=== PATIENT | female | born 1980 | race Two or more races ===

== ENCOUNTER 2024-10-09 23:06 | Emergency (ER) | payer MEDICAID, SELFPAY ==
[2024-10-09 23:07] VITALS: BMI 35.7
[2024-10-09 23:14] VITALS: BP 153/96; PULSE 83; RESP 24; TEMP 37; O2SAT 100
--- NOTE | 2024-10-09 23:19 | XR_ITS ---
Examination: PA lateral chest 2 views Technique: Upright PA lateral chest 2 views Exam date and time: October 09, 2024 11:38 PM Indications: Coughing today. Findings: Suspicious for early right perihilar pneumonia Normal heart size The osseous structures are demineralized Impression: Suspicious for early right perihilar pneumonia
--- NOTE | 2024-10-09 23:33 | EKG_ITS ---
[facility] Test Date: 2024-10-09 Pat Name: NAHID ESPOSITO Department: Room: - Gender: Female Dental Hygienist: : 1980 Requested By: Hossein Waters ([facility]) Order Number: [id number] Reading MD: Hossein Waters ([facility]) Measurements Intervals [place] Rate: 85 P: 11 AL: 124 QRS: 46 QRSD: 93 T: 16 QT: 332 QTc: 395 Interpretive Statements SINUS RHYTHM LOW QRS VOLTAGE IN PRECORDIAL LEADS [QRS DEFLECTION < 1.0 mV IN CHEST LEADS] POSSIBLE RIGHT VENTRICULAR CONDUCTION DELAY [RSR (QR) IN V1/V2] No previous ECG available for comparison /store/S0/[id number]/ecg/[id number].pdf
--- NOTE | 2024-10-09 23:33 | PD.EDRME ---
Rapid Medical Screening Exam RME Arrival date/time: 10/09/24 23:06 44-year-old obese female presents emergency department complaining of chest pain that radiates to left shoulder and sore throat has been ongoing for 3 days. Chief Complaint: Chest Pain Time Seen by Provider: 10/09/24 23:16 Vital signs: Vital Signs Temperature 98.6 F 10/09/24 23:14 Pulse Rate 83 10/09/24 23:14 Respiratory Rate 24 H 10/09/24 23:14 Blood Pressure 153/96 H 10/09/24 23:14 Pulse Oximetry (%) 100 10/09/24 23:14 Oxygen Delivery Method Room Air 10/09/24 23:14 Vital signs reviewed by provider: Yes
[2024-10-10 00:07] LABS: Basophils % (Auto) 0 % (0-2.5); Eosinophils # (Auto) 0.1 Thou/mm3 (0.0-0.5); Eosinophils % (Auto) 1 % (0-10); Hematocrit 40.9 % (36.0-46.0); Hemoglobin 13.9 g/dL (12.0-16.0); Immature Granulocytes % (Auto) 0 % (0-0); Immature Granulocytes Auto 0.01 Thou/mm3 (0.00-0.00); Lymphocytes # (Auto) 1.9 Thou/mm3 (1.0-4.8); Lymphocytes % (Auto) 33 % (10-50); Mean Corpuscular Hemoglobin 29.3 pg (25.0-35.0); Mean Corpuscular Volume 86 fL (80-100); Monocytes # (Auto) 0.5 Thou/mm3 (0.0-0.8); Monocytes % (Auto) 9 % (0-12); Neutrophils # (Auto) 3.2 Thou/mm3 (1.8-7.7); Neutrophils % (Auto) 56 % (37-80); Nucleated Red Blood Cell % 0 /100 WBC (0); Platelet Count 196 Thou/mm3 (140-440); RDW Standard Deviation 37.8 fL (36.4-46.3); Red Blood Count 4.74 Miln/mm3 (4.00-5.20); White Blood Count 5.7 Thou/mm3 (3.6-11.0)
[2024-10-10 00:16] LABS: B-Type Natriuretic Peptide < 20 pg/mL (0-100)
[2024-10-10 00:17] LABS: Alanine Aminotransferase 11 U/L (10-49); Albumin, Serum 4.3 gm/dL (3.5-5.0); Albumin/Globulin Ratio 1.4 (1.2-2.2); Alkaline Phosphatase 102 U/L (46-116); Anion Gap 5 (7-16); Aspartate Amino Transferase 17 U/L (0-34); BUN/Creatinine Ratio 25 Ratio (12-20); Bilirubin,Total 0.3 mg/dL (0.3-1.2); Blood Urea Nitrogen 15 mg/dL (9-23); Calcium 10.1 mg/dL (8.3-10.6); Calcium (Corrected) 10.1 mg/dL (8.5-10.1); Carbon Dioxide 26.2 mMol/L (20.0-31.0); Chloride 108 mMol/L (98-107); Creatinine (Component) 0.6 mg/dL (0.6-1.3); Estimated Creatinine Clearance 139.7 mL/min (>60); Glucose 108 mg/dL (74-106); Osmolality,Calculated 279 (275-295); Potassium 3.8 mMol/L (3.4-5.1); Sodium 139 mMol/L (136-145); Total Protein 7.3 gm/dL (5.7-8.2); Troponin I < 0.002 ng/mL (0.0-0.045); eGFR > 60 See Note
[2024-10-10 00:22] LABS: Strep A Rapid Negative (Negative)
[2024-10-10 00:31] LABS: Partial Thromboplastin Time 26.7 Seconds (22.0-36.0); Prothrombin Time 10.6 Seconds (9.0-12.2)
[2024-10-10 00:33] LABS: Collection Type, Urine Clean Catch; RBC,Urine 0 /hpf (0-3)
[2024-10-10 00:37] LABS: Bacteria,Urine Rare; Bilirubin,Urine Negative (Negative); Blood,Urine Negative (Negative); Clarity,Urine Clear (Clear/Hazy); Color,Urine Lt-Yellow (Lt Yel-Yel); Glucose, Urine Negative (Negative); Ketones,Urine Negative (Negative); Leukocyte Esterase,Urine Positive (Negative); Nitrite,Urine Negative (Negative); PH,Urine 6.5 (5.0-7.0); Protein,Urine Negative (Neg - Trace); Specific Gravity,Urine 1.017 (1.001-1.035); Squamous Epithelial Cell,Urine 3 /hpf (0-5); Urobilinogen,Urine Negative mg/dL (0.0-1.0); WBC,Urine 2 /hpf (0-5)
[2024-10-10 01:02] LABS: Amphetamine/Methamp Scrn,U Negative (Negative); Barbiturate Screen,Urine Negative (Negative); Benzodiazepines Screen,Urine Negative (Negative); Benzoylecgonine Screen, Ur Negative (Negative); Fentanyl Screen,Urine Negative (Negative); Opiate Screen,Urine Negative (Negative); THC Screen,Urine Negative (Negative)
[2024-10-10 01:18] VITALS: BP 135/84; PULSE 84; RESP 18; TEMP 37.2; O2SAT 100
[2024-10-10 01:26] LABS: HCG,Qualitative Serum Negative
--- NOTE | 2024-10-10 02:15 | PD.EDCHEST ---
ED Chest Pain RME/HPI General Chief Complaint: Chest Pain Stated Complaint: CHEST PAIN AND SOB Time Seen by Provider: 10/09/24 23:16 Arrival date/time: 10/09/24 23:06 Limitations: no limitations RME / HPI RME / HPI narrative: 10/09/24 23:06 44-year-old obese female presents emergency department complaining of chest pain that radiates to left shoulder and sore throat has been ongoing for 3 days. ----- Dr. Carrasco's Main ED Evaluation: 44yo female presents to the ED for complaints of mid chest pain and a productive cough x 2-3 days. Patient states her chest pain radiates to her left shoulder. She states she's had a productive cough and wasn't sure what to do with it , so she came in for evaluation. She endorses having a subjective fever, so she took Tylenol which helped. She denies any nausea, vomiting, diarrhea, shortness of breath, UTI symptoms, hemoptysis or any other associated symptoms. No known allergies. Related Data Previous Rx's ?Medication ?Instructions ?Recorded cyclobenzaprine 10 mg tablet 10 mg PO HS #14 tabs 06/30/22 Allergies Allergy/AdvReac Type Severity Reaction Status Date / Time No Known Allergies Allergy Verified 12/18/22 07:42 Review of Systems Review of Systems Systems Reviewed: All systems reviewed, normal except as documented Past Medical History Past Medical History NEUROLOGIC: Negative Neurological Disorders or Cerebrovascular Accident CARDIAC: Negative Myocardial Infarction, Angina or Congestive Heart Failure RESPIRATORY: Negative Chronic Obstructive Pulmonary Disease (COPD) or Emphysema GASTROINTESTINAL: Positive Pancreatitis and Gall Bladder Disease GENITOURINARY: Negative Renal Disease MUSCULOSKELETAL: Negative Musculoskeletal Disorders ENT: Negative Cataracts ENDOCRINE: Negative Diabetes Mellitus Type 1 or Diabetes Mellitus Type 2 HEMATOLOGIC: Negative Anemia OTHER HISTORY: Negative Down Syndrome or Developmental Delay Surgical History SURGICAL: Positive Abdominal Surgery Social History SMOKING STATUS: Never smoker ED Exam General Limitations: Present no limitations General appearance: Present alert and in no apparent distress Head Head exam: Present atraumatic Eye Eye exam: Present normal appearance, PERRL and EOMI ENT ENT exam: Present normal exam, mucous membranes moist and other (mild erythema to the back of the throat without exudates, uvula is midline) Neck Neck exam: Present normal inspection, full ROM and trachea midline Chest Chest inspection: Present normal inspection and symmetric chest wall rise Respiratory Respiratory exam: Present normal lung sounds bilaterally Cardiovascular Cardiovascular exam: Present regular rate, normal rhythm and normal heart sounds Abdominal Exam Abdominal exam: Present soft and normal bowel sounds; Absent distention or tenderness Extremities Exam Extremities exam: Present normal inspection and full ROM; Absent pedal edema Back Exam Back exam: Present normal inspection and full ROM Neurological Exam Neurological exam: Present alert, oriented X3 and CN II-XII intact Psychiatric Psychiatric exam: Present normal affect and normal mood Skin Skin exam: Present warm, dry, intact and normal color Course Course Course Narrative: CXR is ordered for determining the etiology of cough. Quality Measures none Orders Category Date Time Status Bedside COVID-19 Antigen Test NOW Care 10/09/24 23:19 Active Bedside Influenza A&B Antigen Test NOW Care 10/09/24 23:19 Completed EKG (ED ONLY) *Do not use* NOW Care 10/09/24 23:33 Completed EKG (ED Only) Stat Exams 10/09/24 23:33 Draft XR chest 2V Stat Exams 10/09/24 23:19 Completed B-Type Natriuretic Peptide Stat Lab 10/09/24 23:50 Completed CBC Stat Lab 10/09/24 23:50 Completed Comprehensive Metabolic Panel Stat Lab 10/09/24 23:50 Completed Drug Screen,Urine Stat Lab 10/10/24 00:20 Completed HCG,Qualitative Serum Stat Lab 10/09/24 23:50 Completed Magnesium Stat Lab 10/09/24 23:50 Completed Partial Thromboplastin Time Stat Lab 10/09/24 23:50 Completed Prothrombin Time with INR Stat Lab 10/09/24 23:50 Completed Strep A Rapid Stat Lab 10/09/24 23:29 Completed Troponin I Stat Lab 10/09/24 23:50 Completed Urinalysis Stat Lab 10/10/24 00:20 Completed Vital Signs Vital signs: Vital Signs Temperature 98.6 F 10/09/24 23:14 Pulse Rate 83 10/09/24 23:14 Respiratory Rate 24 H 10/09/24 23:14 Blood Pressure 153/96 H 10/09/24 23:14 Pulse Oximetry (%) 100 10/09/24 23:14 Oxygen Delivery Method Room Air 10/09/24 23:14 Pulse ox is 100% on room air, which is normal according to my interpretation. Chest Pain Patient data External records reviewed:: [facility] previous records (Per chart review, patient has no relevant previous ED visits or admissions.) Clinical information provided by:: patient Social determinants that could affect healthcare access:: none Patient has the following chronic illnesses:: none How is presenting disease/condition affected by chronic disease/condition?: no chronic disease Evaluation data The following diagnostics were reviewed and interpreted by me:: lab results, radiology exam(s) and EKG tracing(s) Lab and/or radiology exams considered but not ordered:: none Interpretation Summary: Bedside COVID and Influenza are negative, CBC is normal, CMP is normal, Troponin is negative, HCG is negative, UA is unremarkable, UDS is negative, according to my interpretation. EKG done at 2335, NSR, rate of 85, low voltage, no ST elevations or depressions, QTc is normal, no STEMI, no previous EKG available for comparison, according to my interpretation. ---- [facility] Report Signed Patient: NAHID ESPOSITO. Record#: [id number] Birthdate: 1980 Age/Sex: 44 / F Location: [facility] Attending Dr: Ordering Physician: Lynn MOBLEY)Hossein Date of Service: 10/09/24 Procedure(s): XR chest 2V Accession Number(s): [id number] cc: Naveen Ybarra MD; Lynn CONROYP)Hossein~ Examination: PA lateral chest 2 views Technique: Upright PA lateral chest 2 views Exam date and time: October 09, 2024 11:38 PM Indications: Coughing today. Findings: Suspicious for early right perihilar pneumonia Normal heart size The osseous structures are demineralized Impression: Suspicious for early right perihilar pneumonia Dictated By: Naveen Ybarra MD Signed By: <Electronically signed by Naveen Ybarra MD in OV> 10/10/24 0005 Medications / Prescriptions Medications or Prescriptions considered but not ordered:: none Medication administrations:: see above, if any Consultations Consultation(s) initiated? (list below): No Diagnosis Chest Pain Differential Diagnosis: other (viral syndrome, pneumonia, strep pharyngitis, other viral syndrome) Most likely diagnosis given after review of the tests above:: see below Admission Indicated Admission indicated?: not indicated Admission Request Was there a request for admission?: No Disposition Plan Disposition Plan: Discharge Discharge Attestation Discharge Attestation: The patient and all family members were given an opportunity to ask questions and understood the discharge instructions. Discharge instructions specifically effects, indications for sooner follow up or return to the emergency department, and the expected course of current diagnosis. Patient condition: Stable Discharge Plan Plan Patient Disposition: HOME (Self Care) Patient condition on transfer: Stable Prescriptions/Referrals Prescriptions/Med Rec: No Action cyclobenzaprine 10 mg tablet 10 mg PO HS Qty: 14 0RF Referrals: No Primary/Family,Physician [Primary Care Provider] - In 1 week Problem List Clinical Impression: Community acquired pneumonia Patient/Caregiver Discharge Instructions Education Materials: Treating Pneumonia Print Language: German Stand Alone Forms: Lilli Award Info., Patient Portal Info Letter
[2024-10-10] MEDS: AMOXICILLIN 250 MG CAPSULE 1000 MG PO (02:51)
[2024-10-10] MEDS: KETOROLAC INJ 60 MG/2 ML VIAL 30 MG IM (02:52)
[2024-10-10 02:58] VITALS: BP 128/66; PULSE 88; RESP 16; TEMP 37.1; O2SAT 100
== END 2024-10-10 02:59 | disposition home or self-care (01) ==
PROVIDERS: Emergency Provider Emergency Medicine
DX: J18.9 Pneumonia, unspecified organism (principal); R94.31 Abnormal electrocardiogram [ECG] [EKG]
CPT/HCPCS: 36415; 71046; 80053; 80307; 81001; 83735; 83880; 84484; 84703; 85025; 85610; 85730; 87400; 87651; 87811; 93005; 96372; 99283; J1885; A9270

== ENCOUNTER 2024-12-28 05:53 | Emergency (ER) | payer MEDICAID, SELFPAY ==
[2024-12-28 06:13] VITALS: BP 126/85; PULSE 93; RESP 19; TEMP 36.8; O2SAT 99; BMI 34.6
--- NOTE | 2024-12-28 06:20 | PD.EDRME ---
Rapid Medical Screening Exam RME Arrival date/time: 12/28/24 05:53 44-year-old female presents emergency department today complains of upper abdominal pain Chief Complaint: Abdominal Pain Vital signs: Vital Signs Temperature 98.3 F 12/28/24 06:13 Pulse Rate 93 12/28/24 06:13 Respiratory Rate 19 12/28/24 06:13 Blood Pressure 126/85 H 12/28/24 06:13 Pulse Oximetry (%) 99 12/28/24 06:13 Oxygen Delivery Method Room Air 12/28/24 06:13
[2024-12-28 07:10] LABS: Collection Type, Urine Clean Catch; RBC,Urine 0 /hpf (0-3)
[2024-12-28] MEDS: METOCLOPRAMIDE INJ 5 MG/ML VIAL 2 ML 10 MG IM (07:20)
[2024-12-28] MEDS: KETOROLAC INJ 30 MG/ML VIAL IM (07:20)
[2024-12-28 07:32] LABS: Basophils % (Auto) 0 % (0-2.5); Eosinophils # (Auto) 0.1 Thou/mm3 (0.0-0.5); Eosinophils % (Auto) 1 % (0-10); Hematocrit 42.4 % (36.0-46.0); Hemoglobin 14.3 g/dL (12.0-16.0); Immature Granulocytes % (Auto) 0 % (0-0); Immature Granulocytes Auto 0.01 Thou/mm3 (0.00-0.00); Lymphocytes % (Auto) 16 % (10-50); Mean Corpuscular HGB Conc 33.7 g/dl (31.0-37.0); Mean Corpuscular Hemoglobin 29.8 pg (25.0-35.0); Mean Corpuscular Volume 88 fL (80-100); Monocytes # (Auto) 0.5 Thou/mm3 (0.0-0.8); Monocytes % (Auto) 8 % (0-12); Neutrophils # (Auto) 4.3 Thou/mm3 (1.8-7.7); Neutrophils % (Auto) 74 % (37-80); Nucleated Red Blood Cell % 0 /100 WBC (0); Platelet Count 172 Thou/mm3 (140-440); RDW Standard Deviation 38.5 fL (36.4-46.3); White Blood Count 5.9 Thou/mm3 (3.6-11.0)
[2024-12-28 07:40] LABS: Bacteria,Urine Rare; Bilirubin,Urine Negative (Negative); Blood,Urine Negative (Negative); Clarity,Urine Turbid (Clear/Hazy); Color,Urine Lt-Yellow (Lt Yel-Yel); Culture Indicated,Urine Contaminated; Glucose, Urine Negative (Negative); Ketones,Urine Negative (Negative); Leukocyte Esterase,Urine Positive (Negative); Nitrite,Urine Negative (Negative); PH,Urine 6.5 (5.0-7.0); Protein,Urine Negative (Neg - Trace); Specific Gravity,Urine 1.008 (1.001-1.035); Squamous Epithelial Cell,Urine 21 /hpf (0-5); Urobilinogen,Urine Negative mg/dL (0.0-1.0); WBC,Urine 21 /hpf (0-5)
[2024-12-28 07:41] LABS: HCG Qualitative,Urine Negative
[2024-12-28 07:54] LABS: Alanine Aminotransferase 9 U/L (10-49); Albumin, Serum 4.3 gm/dL (3.5-5.0); Albumin/Globulin Ratio 1.6 (1.2-2.2); Anion Gap 6 (7-16); Aspartate Amino Transferase 15 U/L (0-34); BUN/Creatinine Ratio 17 Ratio (12-20); Bilirubin,Total 0.7 mg/dL (0.3-1.2); Blood Urea Nitrogen 10 mg/dL (9-23); Carbon Dioxide 25.2 mMol/L (20.0-31.0); Chloride 108 mMol/L (98-107); Creatinine (Component) 0.6 mg/dL (0.6-1.3); Estimated Creatinine Clearance 137.3 mL/min (>60); Globulin 2.7 gm/dL (2.3-3.5); Glucose 106 mg/dL (74-106); Lipase 30 U/L (12-53); Osmolality,Calculated 276 (275-295); Potassium 4.2 mMol/L (3.4-5.1); Sodium 139 mMol/L (136-145); Troponin I < 0.002 ng/mL (0.0-0.045); eGFR > 60 See Note
[2024-12-28 08:05] LABS: Alkaline Phosphatase 85 U/L (46-116)
[2024-12-28 08:41] VITALS: BP 139/73; PULSE 78; RESP 18; TEMP 36.9; O2SAT 99
--- NOTE | 2024-12-28 08:56 | EDNOTE_ITS ---
ED Abdominal Pain RME/HPI General Chief Complaint: Abdominal Pain Stated complaint: UPPER ABD PAIN, VOMITING Arrival date/time: 12/28/24 05:53 RME / HPI RME / HPI narrative: 12/28/24 05:53 44-year-old female presents emergency department today complains of upper abdominal pain DR. TESFAYE MAIN ED EVALUATION: 44 year old female with history pancreatitis 5 years ago presents to the ED for evaluation of epigastric abdominal pain beginning at 04:30 hours this morning. Described as aching in sensation and rating as moderate. Accompanied by nausea and vomiting 8x's since onset of pain. Patient mentioned she has experienced similar pain before and told it was due to a viral illness. Denies food being related to meals. Denies fevers, chills, sweats, chest pain, cough, shortness of breath, diarrhea, constipation, or urinary symptoms. Related Data Previous Rx's ?Medication ?Instructions ?Recorded cyclobenzaprine 10 mg tablet 10 mg PO HS #14 tabs 06/03 07/24 Allergies Allergy/AdvReac Type Severity Reaction Status Date / Time No Known Allergies Allergy Verified 12/18/22 07:42 Review of Systems Review of Systems Narrative Review of Systems: Constitutional: DENIES; Fevers Eyes: DENIES; Loss of vision Head/Ear/Nose: DENIES; Loss of hearing Throat: DENIES; Dysphagia Cardiovascular: DENIES; Chest pain, dyspnea or syncope Respiratory: DENIES; Shortness of breath Gastrointestinal: SEE HPI +nausea, vomiting, abdominal pain. DENIES; Rectal bleeding or melena. Genitourinary: DENIES; Dysuria (painful or difficult urination) Musculoskeletal: DENIES; Arthralgia (pain in a joint),; Skin: DENIES; Rash Neurological: DENIES; Loss of function or movement Psychiatric: DENIES; recent major life stressor, emotional problem, illicit drug use or abuse Endocrinology: DENIES; Weight change Hematologic/Lymphatic: DENIES; Abnormal bruising Allergic/Immunologic: DENIES; Urticaria (hives) Past Medical History Past Medical History NEUROLOGIC: Negative Neurological Disorders GASTROINTESTINAL: Positive Pancreatitis and Gall Bladder Disease MUSCULOSKELETAL: Negative Musculoskeletal Disorders Surgical History SURGICAL: Positive Abdominal Surgery Social History SMOKING STATUS: Never smoker ED Exam Narrative Physical exam: Physical Exam: General: The vital signs were reviewed. The patient is non-toxic, in no apparent distress and appears healthy with a patent airway, no respiratory distress and has no apparent circulatory problems. Head & Scalp: Normocephalic, atraumatic. Face: Appears normal and is without lesions, deformity. Ears: Left external pinna appears normal. Right external pinna appears normal. Eyes: The sclera is anicteric. No obvious photophobia. The Left and Right Orbit/Lid/Conjunctiva appears normal without swelling, discoloration or in jection. Nose: The nose is without deformity, discharge or tenderness; Throat: Appears normal. The mucous membranes are pink and moist without exudates, redness or mass seen. The tongue appears normal. Neck: The neck is supple and no apparent mass or adenopathy. Chest: The chest wall is normal in size and symmetry and has no chest wall tenderness or crepitus. The patient displays normal ventilator effort without retractions, accessory muscle use and has adequate air movement bilaterally with no wheezes and no rales. Cardiovascular: Regular rate and rhythm; No murmurs, rubs, or gallops; Gastrointestinal: The abdomen appears normal. No obvious hernias or mass. The abdomen is soft and benign, non-distended, with no pain, no guarding and no rebound tenderness. Bowel sounds are present and normal sounding. No CVA tenderness. Genitourinary: Back/Spine: Extremities/Musculoskeletal/lymphatic: The bilateral upper and lower extremities are warm. There is no evidence of arterial insufficiency. There is no evidence of venous insufficiency/edema. The patient spontaneously moves bilateral upper and lower extremities with no pain and no limitation of movement. There is no apparent, injury or trauma. Skin: The skin is warm, dry and intact. No rashes. No petechia. No purpura. No abnormal bruising. The color is appropriate with no cyanosis. Mental status/Psychiatric: Mental status is appropriate for age. The patient has no apparent delusions, visual hallucinations, no apparent audible hallucinations. The patient has no apparent suicidal thoughts/ideation and no apparent homicidal thoughts/ideation. Neurological: The patient is awake, alert, interactive, cordial, cooperative and is oriented to name and situation. The patient follows commands and answers historical question with no impairment. There is no visual disturbance apparent. The pupils are equal and reactive bilaterally with normal eye movements and no diplopia The bilateral upper and lower extremities have normal strength, normal range of motion and normal functioning. The gait, station and balance appear to be baseline with no acute change Course Quality Measures none Orders Category Date Time Status CBC Stat Lab 12/28/24 07:04 Completed Comprehensive Metabolic Panel Stat Lab 12/28/24 07:04 Completed HCG Qualitative,Urine Stat Lab 12/28/24 06:28 Completed Lipase Stat Lab 12/28/24 07:04 Completed Troponin I Stat Lab 12/28/24 07:04 Completed UA, C/S IF [Urinalysis, C/S if Indicated] Stat Lab 12/28/24 06:28 Completed Ketorolac Inj [Toradol Inj] Med 12/28/24 06:19 Discontinued 30 mg IM X1 ONE Metoclopramide Inj [Reglan Inj] Med 12/28/24 06:19 Discontinued 10 mg IM X1 ONE Vital Signs Vital signs: Vital Signs Temperature 98.3 F 12/28/24 06:13 Pulse Rate 93 12/28/24 06:13 Respiratory Rate 19 12/28/24 06:13 Blood Pressure 126/85 H 12/28/24 06:13 Pulse Oximetry (%) 99 12/28/24 06:13 Oxygen Delivery Method Room Air 12/28/24 06:13 Pulse ox is 99% on room air which is adequate. Abdominal Pain MDM MDM Narrative MDM Narrative:: IZohra, phil scribing for and in the presence of Dr. Tesfaye. Patient is a 41-year-old who comes in with abdominal pain that is resolved since she got some medications with nausea and vomiting which is resolved with Zofran has been no further vomiting. Her lab studies show her BUN/creatinine to be normal her electrolytes to be within normal limits. And a urine is a contaminated specimen but she is very dilute. CBC with white count 5.9 hemoglobin 14.3. Patient clinically does not appear to be very ill we will try some oral fluids and reevaluate. Reevaluation at>>>>>> patient's labs and admission were reassuring she drank fluids without any nausea or vomiting she ambulated without any difficulty she is smiling states she feels good and wants to go home. Her abdominal pain is totally resolved and she has no further nausea. Patient was advised return to getting worse in any way Patient data External records reviewed:: [facility] previous records (I reviewed ED visit on 10/10/2024) Clinical information provided by:: patient Social determinants that could affect healthcare access:: none Patient has the following chronic illnesses:: Pancreatitis 5 years ago How is presenting disease/condition affected by chronic disease/condition?: uneffected by Evaluation data The following diagnostics were reviewed and interpreted by me:: lab results Lab and/or radiology exams considered but not ordered:: None Interpretation Summary: as noted above Medications / Prescriptions Medications or Prescriptions considered but not ordered:: None Medication administrations:: Medication Administration History Discontinued Medications Ketorolac Tromethamine (Ketorolac Inj 30 Mg/Ml Vial) 30 mg IM X1 ONE Stop: 12/28/24 06:20 Last Admin: 12/28/24 07:20 Dose: 30 mg Documented By: ORIN Metoclopramide HCl (Metoclopramide Inj 5 Mg/Ml Vial 2 Ml) 10 mg IM X1 ONE; Protocol Stop: 12/28/24 06:20 Last Admin: 12/28/24 07:20 Dose: 10 mg Documented By: ORIN See above Consultations Consultation(s) initiated? (list below): No Diagnosis Differential diagnosis abdominal pain: abdominal pain, calculus of kidney, gastroenteritis, pancreatitis and other (gastritis ) Most likely diagnosis given after review of the tests above:: Abdominal pain, nausea and vomiting Admission Indicated Admission indicated?: not indicated Explain why admission is indicated or not indicated:: Pt reported improvement in symptoms. Admission not indicated. Admission Request Was there a request for admission?: No Disposition Plan Disposition Plan: Discharge Discharge Attestation Discharge Attestation: The patient and all family members were given an opportunity to ask questions and understood the discharge instructions. Discharge instructions specifically effects, indications for sooner follow up or return to the emergency department, and the expected course of current diagnosis. Patient condition: Stable Discharge Plan Plan Patient Disposition: HOME (Self Care) Prescriptions/Referrals Prescriptions/Med Rec: No Action cyclobenzaprine 10 mg tablet 10 mg PO HS Qty: 14 0RF Referrals: Brittany Cai MD [Primary Care Provider] - In 1 week Problem List Clinical Impression: Abdominal pain, Nausea and vomiting Patient/Caregiver Discharge Instructions Education Materials: Abdominal Pain, ED Vomiting and Diarrhea ... Additional Instructions: Today had a medical workup for abdominal pain and nausea and vomiting. Medical workup was essentially negative. Your abdominal pain and nausea vomiting appear to be resolved at this time. If you are getting worse please return for reevaluation. If your abdominal pain returns and persist for 6 to 8 hours please return for reevaluation. You can drink clear liquids and advance her diet as tolerated. Keep a diary of your symptoms and reoccurrence if it occurs in the future. Print Language: Brazilian Stand Alone Forms: Lilli Award Info., Patient Portal Info Letter
--- NOTE | 2024-12-28 10:20 | PC.NURSE ---
PATIENT ABLE TO TOLERATE PO LIQUIDS AND FOOD. PATIENT AMBULATED. STEADY GAIT NOTED. PATIENT GCS 15 WITH NO COMPLAINTS AT THIS TIME. NO PAIN REPORTED. DR TESFAYE MADE AWARE.
[2024-12-28 10:37] VITALS: BP 124/99; PULSE 76; RESP 16; TEMP 36.9; O2SAT 96
== END 2024-12-28 10:41 | disposition home or self-care (01) ==
PROVIDERS: Nurse Practitioner Primary Care; Emergency Provider Emergency Medicine; PCP Obstetrics & Gynecology
DX: R10.13 Epigastric pain (principal); R11.2 Nausea with vomiting, unspecified
CPT/HCPCS: 36415; 80053; 81001; 81025; 83690; 84484; 85025; 96372; 99283; J1885; J2765